=== PATIENT | female | born 1955 | race Caucasian/White ===

== ENCOUNTER → 2021-06-19 08:21 | Outpatient (CLI) | payer OTHER, SELFPAY ==
[2021-06-19 19:15] LABS: Add Manual Diff / Slide Review NO; Basophils Absolute Auto 0 /uL (0-100); Basophils Percent Auto 1.2 % (0-2); Eosinophils Absolute Auto 100 /uL (0-450); Eosinophils Percent Auto 2.9 % (2-4); Hematocrit 43.7 % (36-46); Lymphocytes Absolute Auto 1600 /uL (1100-4500); Lymphocytes Percent Auto 46.3 % (25-40); Mean Corpuscular HGB Conc 34.3 % (30-36); Mean Corpuscular Volume 87.5 fL (80-100); Monocytes Absolute Auto 300 /uL (0-900); Monocytes Percent Auto 9.2 % (3-14); Neutrophils Absolute Auto 1400 /uL (1500-7000); Neutrophils Percent Auto 40.4 % (50-75); Platelet Count 287 X10^3/uL (150-400); White Blood Cell Count 3.4 X10^3/uL (4.5-11.0)
[2021-06-19 19:20] LABS: Alanine Aminotransferase 18 IU/L (<35); Albumin 3.8 g/dL (3.5-5.0); Albumin Globulin Ratio 1.4 (1.0-2.8); Alkaline Phosphatase 69 U/L (38-126); Aspartate Aminotransferase 32 IU/L (14-36); BUN Creatinine Ratio 17.1 (6-22); Bilirubin Total 1.5 mg/dL (0.2-1.3); Blood Urea Nitrogen 13 mg/dL (7-17); Calcium 8.9 mg/dL (8.4-10.2); Carbon Dioxide 25 mmol/L (22-32); Chloride 106 mmol/L (98-107); Cholesterol 176 mg/dL (140-199); Estimated Glomerular Filt Rate > 60.0 mL/min (>60); Globulin 2.7 g/dL (1.7-4.1); Glucose 95 mg/dL (80-110); HDL Cholesterol 73 mg/dL (40-60); HEMOLYSIS < 15 (0-50); LDL Cholesterol Calculated 95 mg/dL (<100); Potassium 3.4 mmol/L (3.4-5.1); Sodium 137 mmol/L (137-145); Total Protein 6.5 g/dL (6.3-8.2); Triglycerides 41 mg/dL (35-150)
[2021-06-19 19:40] LABS: Free T3, Triiodothyronine Free 3.73 pg/mL (2.77-5.27); Free T4, Direct Thyroxine 1.75 ng/dL (0.78-2.19)
[2021-06-19 19:53] LABS: Ferritin 13 ng/mL (11-264)
[2021-06-19 19:59] LABS: Thyroid Stimulating Hormone < 0.015 uIU/mL (0.47-4.68)
[2021-06-21 05:29] LABS: Thyroid Peroxidase Antibodies 156 IU/mL (0-34)
== END ==
PROVIDERS: PCP Family Medicine; Visit Provider Naturopath
DX: D70.9 Neutropenia, unspecified (principal); E06.3 Autoimmune thyroiditis; G43.719 Chronic migraine without aura, intractable, without status migrainosus; Z00.00 Encounter for general adult medical examination without abnormal findings
CPT/HCPCS: 80053; 80061; 82728; 84439; 84443; 84481; 85025; 86376

== ENCOUNTER → 2021-11-13 09:27 | Outpatient (CLI) | payer MEDICARE, OTHER, SELFPAY ==
[2021-11-14 18:21] LABS: Add Manual Diff / Slide Review NO; Basophils Absolute Auto 0 /uL (0-100); Basophils Percent Auto 0.5 % (0-2); Eosinophils Absolute Auto 100 /uL (0-450); Eosinophils Percent Auto 3.1 % (2-4); Hematocrit 45.8 % (36-46); Hemoglobin 15.9 g/dL (12.0-16.0); Lymphocytes Absolute Auto 1600 /uL (1100-4500); Lymphocytes Percent Auto 44.8 % (25-40); Mean Corpuscular HGB Conc 34.7 % (30-36); Mean Corpuscular Volume 89.4 fL (80-100); Monocytes Absolute Auto 300 /uL (0-900); Neutrophils Absolute Auto 1600 /uL (1500-7000); Neutrophils Percent Auto 44.6 % (50-75); Platelet Count 289 X10^3/uL (150-400); Red Blood Cell Count 5.12 X10^6/uL (4.0-5.2); Red Cell Distribution Width 13.4 % (11.6-14.8); White Blood Cell Count 3.6 X10^3/uL (4.5-11.0)
[2021-11-14 18:46] LABS: C-Reactive Protein Quant < 0.5 mg/dL (<1.0)
[2021-11-14 18:54] LABS: Vitamin D 25 Hydroxy (D3) 40.3 ng/mL (30.0-100.0)
[2021-11-14 19:04] LABS: Free T3, Triiodothyronine Free 4.15 pg/mL (2.77-5.27); Free T4, Direct Thyroxine 1.64 ng/dL (0.78-2.19)
[2021-11-14 19:21] LABS: Thyroid Stimulating Hormone < 0.015 uIU/mL (0.47-4.68)
[2021-11-14 19:44] LABS: Vitamin B12 735 pg/mL (239-931)
[2021-11-20 22:24] LABS: ANA Screen, IFA Positive (.)
== END ==
PROVIDERS: PCP Family Medicine; Visit Provider Family Medicine
DX: E03.9 Hypothyroidism, unspecified (principal); G43.709 Chronic migraine without aura, not intractable, without status migrainosus; E55.9 Vitamin D deficiency, unspecified; E06.3 Autoimmune thyroiditis; N95.2 Postmenopausal atrophic vaginitis; R53.83 Other fatigue
CPT/HCPCS: 82306; 82607; 84439; 84443; 84481; 85025; 85651; 86038; 86140

== ENCOUNTER → 2021-11-27 13:30 | Outpatient (CLI) | payer MEDICARE, OTHER, SELFPAY ==
[2021-11-29 16:36] LABS: SS A Ro Sjogrens Antibody < 0.2 AI (0.0-0.9); SS B La Sjogrens Antibody < 0.2 AI (0.0-0.9)
[2021-11-29 17:31] LABS: Scleroderma 70 Antibody < 0.2 AI (0.0-0.9)
== END ==
PROVIDERS: PCP Family Medicine; Visit Provider Family Medicine
DX: E03.9 Hypothyroidism, unspecified; E06.3 Autoimmune thyroiditis; M25.50 Pain in unspecified joint; N95.2 Postmenopausal atrophic vaginitis; R53.82 Chronic fatigue, unspecified; R53.83 Other fatigue
CPT/HCPCS: 86235

== ENCOUNTER → 2022-02-18 15:27 | Outpatient (CLI) | payer MEDICARE, OTHER, SELFPAY ==
[2022-02-21 06:14] LABS: Candida species Negative (Negative); Gardnerella vaginalis Positive (Negative); Trichomoas vaginalis Negative (Negative)
[2022-02-24 00:07] LABS: Chlamydia trachomatis Negative (Negative); Mycoplasma genitalium Negative (Negative); Neisseria gonorrhoeae Negative (Negative)
== END ==
PROVIDERS: PCP Family Medicine; Visit Provider Physician Assistant
DX: N89.8 Other specified noninflammatory disorders of vagina (principal)
CPT/HCPCS: 87480; 87491; 87510; 87563; 87591; 87660

== ENCOUNTER → 2022-02-25 14:29 | Outpatient (CLI) | payer MEDICARE, OTHER, SELFPAY | PROVIDERS: PCP Family Medicine; Visit Provider Physician Assistant | DX: R30.0 Dysuria (principal) | CPT/HCPCS: 87086 ==

== ENCOUNTER → 2022-03-25 11:17 | Outpatient (CLI) | payer MEDICARE, OTHER, SELFPAY | PROVIDERS: PCP Family Medicine; Visit Provider Physician Assistant | DX: B96.89 Other specified bacterial agents as the cause of diseases classified elsewhere (principal); N76.0 Acute vaginitis; N89.8 Other specified noninflammatory disorders of vagina | CPT/HCPCS: 87491; 87591; 87661; 87798; 87801 ==

== ENCOUNTER → 2022-04-02 09:49 | Outpatient (CLI) | payer MEDICARE, OTHER, SELFPAY ==
[2022-04-02 11:34] LABS: Add Manual Diff / Slide Review NO; Basophils Absolute Auto 0 /uL (0-100); Eosinophils Absolute Auto 100 /uL (0-450); Eosinophils Percent Auto 1.9 % (2-4); Hematocrit 46.7 % (36-46); Hemoglobin 15.7 g/dL (12.0-16.0); Lymphocytes Absolute Auto 1900 /uL (1100-4500); Lymphocytes Percent Auto 51.3 % (25-40); Mean Corpuscular HGB Conc 33.5 % (30-36); Mean Corpuscular Hemoglobin 30.6 PG (26-34); Mean Corpuscular Volume 91.1 fL (80-100); Monocytes Absolute Auto 200 /uL (0-900); Monocytes Percent Auto 6.8 % (3-14); Neutrophils Absolute Auto 1400 /uL (1500-7000); Platelet Count 285 X10^3/uL (150-400); Red Blood Cell Count 5.13 X10^6/uL (4.0-5.2); Red Cell Distribution Width 13.7 % (11.6-14.8); White Blood Cell Count 3.6 X10^3/uL (4.5-11.0)
[2022-04-02 12:35] LABS: Alanine Aminotransferase 31 IU/L (<35); Albumin 3.8 g/dL (3.5-5.0); Albumin Globulin Ratio 1.3 (1.0-2.8); Alkaline Phosphatase 62 U/L (38-126); Aspartate Aminotransferase 38 IU/L (14-36); BUN Creatinine Ratio 10.4 (6-22); Bilirubin Total 1.2 mg/dL (0.2-1.3); Blood Urea Nitrogen 8 mg/dL (7-17); Calcium 8.3 mg/dL (8.4-10.2); Carbon Dioxide 26 mmol/L (22-32); Chloride 104 mmol/L (98-107); Estimated Glomerular Filt Rate > 60 mL/min (>60); Globulin 2.9 g/dL (1.7-4.1); Glucose 93 mg/dL (80-110); HEMOLYSIS < 15 (0-50); Potassium 3.6 mmol/L (3.4-5.1); Sodium 139 mmol/L (137-145); Total Protein 6.7 g/dL (6.3-8.2)
[2022-04-02 12:42] LABS: Free T4, Direct Thyroxine 1.12 ng/dL (0.78-2.19)
[2022-04-02 12:56] LABS: Thyroid Stimulating Hormone 0.033 uIU/mL (0.47-4.68)
== END ==
PROVIDERS: PCP Family Medicine; Referring Provider Physician Assistant; Visit Provider Physician Assistant
DX: L71.9 Rosacea, unspecified (principal); F41.9 Anxiety disorder, unspecified; E03.9 Hypothyroidism, unspecified; N89.8 Other specified noninflammatory disorders of vagina
CPT/HCPCS: 36415; 80053; 84439; 84443; 85025

== ENCOUNTER → 2022-04-30 08:57 | Outpatient (CLI) | payer MEDICARE, OTHER, SELFPAY ==
--- NOTE | 2022-04-30 10:11 | DI.US.S_ITS ---
PROCEDURE: US THYROID INDICATIONS: VERY LOW TSH RULE OUT ACTIVE NODULE TECHNIQUE: Real-time scanning was performed of the thyroid gland, with image documentation. COMPARISON: None. FINDINGS: Right: Thyroid lobe measures 3.2 x 1.3 x 1.4 cm, and is homogeneous in echotexture. Left: Thyroid lobe measures 2.9 x 1.2 x 1.1 cm, and is homogenous in echotexture. Isthmus: 2 mm thick. Nodule number: 1 Location: Left upper lateral Size: 0.7 x 0.6 x 0.7 cm. Composition: Solid Echogenicity: Hypoechoic Shape: wider than tall. Margins: Smooth Echogenic foci: None Total points: 4 ACR TI-RADS category: 4 Nodule number: 2 Location: Left inferior Size: 0.8 x 0.4 x 0.5 cm. Composition: Solid Echogenicity: Hypoechoic Shape: wider than tall. Margins: Smooth Echogenic foci: None Total points: 4 ACR TI-RADS category: 4 IMPRESSION: Lesions 1 in 2 are considered category 4. Secondary to small size, no further follow-up is recommended as below. It is noted lesion 2 is markedly inferior into the thyroid bed. While this could represent exophytic nodule, parathyroid cannot be definitively excluded. If clinical symptoms warrant, further evaluation for presence of parathyroid is recommended with nuclear medicine scan. ACR TI-RADS definitions and recommendations: TI-RADS 1 (benign): 0 points. FNA not needed. TI-RADS 2 (not suspicious): 2 points. FNA not needed. TI-RADS 3 (mildly suspicious): 3 points. * FNA if 2.5 cm or larger, follow up if 1.5 cm or larger (at 1, 3, and 5 years). TI-RADS 4 (moderately suspicious): 4-6 points. * FNA if 1.5 cm or larger, follow up if 1 cm or larger (at 1, 2, 3, and 5 years). TI-RADS 5 (highly suspicious): 7 points or more. * FNA if 1 cm or larger, follow up if 0.5 cm or larger (every year for 5 years). Dictated by: Yee Rodriguez M.D. on 04/30/2022 at 16:18 Approved by: Yee Rodriguez M.D. on 04/30/2022 at 16:20
[2022-04-30 19:35] LABS: Cortisol AM (Before 10AM) 9.67 ug/dL (4.46-22.7)
[2022-05-12 08:10] LABS: Percent Free Testosterone 2.67 % (0.50-2.80); Testosterone Free 0.34 ng/dL (0.10-0.85); Testosterone Total 12.9 ng/dL (7.0-40.0)
== END ==
PROVIDERS: PCP Family Medicine; Referring Provider Family Medicine; Visit Provider Family Medicine
DX: E05.90 Thyrotoxicosis, unspecified without thyrotoxic crisis or storm (principal); E04.2 Nontoxic multinodular goiter; M79.10 Myalgia, unspecified site; R53.82 Chronic fatigue, unspecified; N95.2 Postmenopausal atrophic vaginitis; Z51.81 Encounter for therapeutic drug level monitoring; Z79.890 Hormone replacement therapy
CPT/HCPCS: 36415; 76536; 82533; 84402; 84403

== ENCOUNTER → 2022-06-24 14:41 | Outpatient (CLI) | payer MEDICARE, OTHER, SELFPAY ==
[2022-06-24 20:36] LABS: C-Reactive Protein Quant 0.5 mg/dL (<1.0)
[2022-06-24 21:11] LABS: Erythrocyte Sedimentation Rate 2 MM/HR (0-20)
[2022-06-30 20:13] LABS: ANA Screen, IFA Positive (.)
== END ==
PROVIDERS: PCP Family Medicine; Visit Provider Family Medicine
DX: E06.3 Autoimmune thyroiditis (principal); I73.00 Raynaud's syndrome without gangrene; M79.10 Myalgia, unspecified site; R53.82 Chronic fatigue, unspecified; M35.3 Polymyalgia rheumatica
CPT/HCPCS: 85651; 86038; 86140

== ENCOUNTER 2022-07-14 11:07 | Day surgery (SDC) | payer MEDICARE, OTHER, SELFPAY ==
[2022-07-02 12:11] VITALS: BMI 21.2
--- NOTE | 2022-07-14 | PATH_ITS ---
[facility] Accession Number: [id number] No. of containers..01 Tissue . 01 Material submitted: . artery - RIGHT TEMPORAL ARTERY BIOPSY . 01 Diagnosis: Right Temporal Artery, Biopsy: Mild intimal fibrosis consistent with arteriosclerosis. Negative for changes diagnostic of temporal/giant cell arteritis. MRV 07/17/2022 1654 Local . 01 Comment: An elastic stain shows focal disruption of the internal elastic lamina. . 01 Electronically signed: . Yamini Acharya MD, Pathologist NPI- [id number] . 01 Gross description: . RIGHT TEMPORAL ARTERY BIOPSY: Received in formalin is 1 fragment of mao soft tissue measuring 0.4 x 0.3 x 0.2 cm. Specimen is submitted in its entirety in 1 cassette. /KENN 07/15/2022 2320 Local . 01 Pathologist provided ICD-10: G90.01 . 01 CPT . 438793, [id number] Specimen Comment: A courtesy copy of this report has been sent to [facility] Performed at: 01 [facility] [address] [place] [address], [place], [place] [id number] MD Dash Bhandari MD Phone: [phone]
[2022-07-14 11:44] VITALS: BMI 21.2
[2022-07-14 12:02] VITALS: BP 149/84; PULSE 67; RESP 20; TEMP 36.4; O2SAT 100
[2022-07-14] MEDS: LACTATED RINGERS 1,000 ML 42 ML IV ×2 (12:12→14:10)
--- NOTE | 2022-07-14 12:58 | P.HP_ITS ---
History of Present Illness History of Present Illness Date Patient Seen: 07/14/22 Time Patient Seen: 12:58 Chief complaint: Temporal Artery Bx Narrative: Ms. Barbour presents today Having been referred by both her reports analysis manager and her primary care physician for a temporal artery biopsy. There was concern for giant cell arteritis. And she has been started on prednisone.per PCP Dr. Saucedo note, on 06/24 myalgias with dramatic response to prednisone very suspicious for PMR. She did not follow up for her lab work, now unfortunately she is on steroids which may obscure rise in sed rate or CRP...other concerning findings include change in her headache pattern and also tenderness with palpation of the carotids. I am concerned enough that I did have her start prednisone 60 mg a day.She reports no changes in her symptoms since that visit. [facility] Medical History (Updated 07/02/22 @ 12:18 by Saira Hendrickson RN) Chicken pox Endometriosis (~1969) Fibroids (~1994) Headache, migraine Irregular menstrual cycle (~1970) Measles Mumps Osteoarthritis Painful menstrual periods (~1970) Rosacea (~2020) Thyroid nodule (~2013) Surgical History (Updated 02/18/22 @ 16:32 by Kim Figueroa PA-C) Anesthesia History of cholecystectomy (~01/2008) History of hysterectomy (~03/2001) History of varicose vein ligation (~07/2011) Family History (Updated 11/26/21 @ 20:37 by Erica Marcus) Father History of heart disease Hypertension Hyperlipidemia Mother History of heart disease Hyperlipidemia Hypertension Stroke Thyroid disease Brother Hyperlipidemia Hypertension Thyroid disease Sister Hyperlipidemia Hypertension Stroke Grandfather Cancer Grandmother Cancer Social History household members: spouse Smoking Status: Never smoker alcohol intake: never Meds Home Medications and Allergies Home Medications Medication Instructions Recorded Confirmed Type liothyronine 5 mcg tablet 5 mcg PO DAILY #90 tabs 04/07/22 07/14/22 Rx topiramate 50 mg tablet 100 mg PO DAILY #180 tabs 04/07/22 07/14/22 Rx levothyroxine 88 mcg tablet 88 mcg PO DAILY #90 tabs 04/08/22 07/14/22 Rx doxycycline monohydrate 50 mg 50 mg PO DAILY 04/29/22 07/14/22 History tablet esterified 1 tab PO DAILY #90 tabs 04/30/22 07/14/22 Rx estrogens-methyltestosterone 1.25 mg-2.5 mg tablet lorazepam 0.5 mg tablet (Ativan) 0.5 mg PO DAILY PRN anxiety #4 tabs 07/01/22 07/14/22 Rx prednisone 10 mg tablet See Rx Instructions PO DAILY #60 07/03/22 07/14/22 Rx tabs rizatriptan 10 mg tablet 10 mg PO ONCE PRN migraines 07/14/22 07/14/22 History Allergies Allergy/AdvReac Type Severity Reaction Status Date / Time carbamazepine Allergy Severe rash Verified 07/14/22 12:14 (previous mention of seizure too??) ketorolac Allergy Severe bleeding Verified 07/14/22 11:32 tetanus toxoid, adsorbed Allergy Intermediate swelling Verified 07/14/22 11:32 Exam Vital Signs (past 8 hours): - 07/14/22 12:02 Temperature 97.6 F Pulse Rate 67 Respiratory Rate 20 Blood Pressure 149/84 H Pulse Oximetry 100 Oxygen Delivery Method Room Air Oxygen Delivery Method Room Air Const General: healthy appearing, No acute distress and anxious Nutritional Appearance: average body habitus and thin Orientation: alert, awake and oriented x3 HENMT Head: normal to inspection and No scalp lesion Eyes General: appearance normal, both eyes and all related structures Resp Effort & Inspection: normal respiratory effort and able to speak in complete sentences Cardio Rate: regular rate Pulses: radial pulses present Assessment & Plan Assessment and plan (1) Headache, chronic migraine without aura: Qualifiers: Status migrainosus presence: without status migrainosus Intractability: not intractable Qualified Code(s): G43.709 - Chronic migraine without aura, not intractable, without status migrainosus Status: Acute (2) PMR (polymyalgia rheumatica): Status: Acute (3) Carotidynia: Status: Acute Assessment & Plan narrative: I discussed with Ms. Mena the risks benefits and alternatives of a temporal artery biopsy including but not limited to bleeding infection and failure of a diagnosis. I explained large hematomas and nondiagnostic procedures where it is difficult to find the artery or if the artery is found the pathologist is unable to determine the etiology of the disease. She understands these risks and also the benefit of obtaining a diagnosis and would like to proceed with the biopsy.
[2022-07-14] MEDS: CEFAZOLIN 2 GM/100 ML PREMIX 100 ML IV (13:10)
[2022-07-14] MEDS: BUPIVACAINE 0.5% (PF) 10 ML VIAL INJ (13:53)
--- NOTE | 2022-07-14 13:55 | SUR.OPER ---
Supine on padded OR bed, head on pillow, arms padded and tucked at sides, legs uncrossed, safety belt at thigh, tape over blanket over lower legs . Gel pad under bilateral heels. Patient glasses and cell phone placed in patient belongings bag in pre-op area.
[2022-07-14 14:20] VITALS: BP 126/77; PULSE 68; RESP 12; TEMP 36.4; O2SAT 97
[2022-07-14 14:25] VITALS: BP 126/75; PULSE 68; RESP 13; TEMP 36.4; O2SAT 97
[2022-07-14 14:30] VITALS: BP 133/82; PULSE 67; RESP 13; TEMP 36.4; O2SAT 100
--- NOTE | 2022-07-14 14:31 | P.OP_ITS ---
Operative Date/Time/Diagnoses Date of procedure: 07/14/22 Time of procedure: 14:31 Pre-op diagnosis: Suspicion of temporal arteritis Post-op diagnosis: same Procedure & Clinicians Procedure: Temporal artery biopsy right side Same procedure as scheduled: Yes Indications: Referral from abrasive band winder as well as primary care physician for suspected giant cell arteritis. Surgeon: Payton Hummel Anesthesia Type: General Operative Notes Procedure in detail: Patient was taken to the operating room and placed supine. General LMA anesthesia was induced. Time-out was performed. The both right and left temporal arteries were palpated and the right side was more easily palpable. Had discussed previously with the patient that she had no preference as to which side we approached for biopsy. I confirmed that Doppler signal was easily found overlying the palpable area and then the area was prepped Betadine and draped in the usual sterile fashion. Lidocaine without epinephrine was infused around the area after confirming the location with a sterile Doppler and marking the location of the vessel. A 15 blade scalpel was used to make an incision along the hairline and using fine Metzenbaum the incision was carried down into the subcutaneous tissues with careful dissection to identify the vascular bundle below. This small vessel was found and isolated dissected using a fine right angle and a vessel loop was placed around it. Using the vessel loop I dissected free distal and proximal segment of the vessel. I tied off each end with a 3-0 silk suture. Additionally there was a vein nearby which I placed another 3-0 6 silk suture around for the purpose of hemostasis. I then used Metzenbaum to resect the segment of vessel between the 2 silk sutures and sent this for pathology. It was approximately 1 cm in length. Additional hemostasis was achieved using a fine tip electrocautery and the subcutaneous sutures were closed with a single interrupted 3-0 Vicryl. The skin was closed with interrupted 4-0 Monocryl and skin glue. Patient tolerated the procedure well and went in good condition to the postoperative care unit there were no complications
[2022-07-14 14:37] VITALS: BP 139/89; PULSE 71; RESP 15; TEMP 36.4; O2SAT 98
== END 2022-07-14 15:15 | disposition home or self-care (01) ==
PROVIDERS: PCP Family Medicine; Referring Provider Surgery; Visit Provider Surgery
PROC: (CPT 37609; principal; 2022-07-14 12:30)
DX: G43.709 Chronic migraine without aura, not intractable, without status migrainosus (principal); G90.01 Carotid sinus syncope; M35.3 Polymyalgia rheumatica
CPT/HCPCS: 37609; J0690; J1100; J2250; J2405; J2704; J3010

== ENCOUNTER → 2022-11-16 11:18 | Outpatient (CLI) | payer MEDICARE, OTHER, SELFPAY ==
[2022-11-16 20:43] LABS: TSH w/ Reflex to FT4 0.05 uIU/mL (0.47-4.68)
[2022-11-16 22:45] LABS: Free T4, Direct Thyroxine 1.11 ng/dL (0.78-2.19)
== END ==
PROVIDERS: PCP Family Medicine; Visit Provider Family Medicine
DX: E03.9 Hypothyroidism, unspecified (principal)
CPT/HCPCS: 84439; 84443

== ENCOUNTER → 2023-01-21 12:01 | Outpatient (CLI) | payer MEDICARE, OTHER, SELFPAY ==
--- NOTE | 2023-01-21 | DI.MG.S_ITS ---
BILATERAL DIGITAL SCREENING MAMMOGRAM 3D/2D WITH CAD: 01/21/2023 CLINICAL: Default Baseline exam. Routine screening. No prior exams were available for comparison. Both breasts are heterogeneously dense, which may obscure small masses (category c / 51-75% glandular tissue). Current study was also evaluated with a Computer Aided Detection (CAD) system. No significant masses, calcifications, or other findings are seen in either breast. IMPRESSION: NEGATIVE There is no mammographic evidence of malignancy. A 1 year screening mammogram is recommended. Based on the Tyrer Cuzick model (a risk assessment model) the patient's lifetime risk is 8.8% and her 10 year risk is 4.4%. According to the ACR, ACS, and NCCN guidelines, an annual breast MRI exam along with mammogram is recommended if the patient's lifetime risk is 20% or greater. This exam was interpreted at Station ID: [id number]. NOTE: For mammograms, a report in lay terms will be sent to the patient. Approximately 15% of breast malignancies will not be visualized mammographically. In the management of a palpable breast mass, a negative mammogram must not discourage biopsy of a clinically suspicious lesion. Electronically Signed By: Stan cedeño/bahman:01/21/2023 16:52:03 letter sent: Normal Exam ACR BI-RADS Category 1: Negative 3341F
--- NOTE | 2023-01-21 12:03 | DI.RAD.S_ITS ---
Bone Density Report Name: DARNELL DE LEON Age: 67 Sex: Female Ethnicity: White Date of : 1955 Indication: postmenopausal; screening for osteoporosis; Referring Provider: CRISTINA WILLARD Study: Bone densitometry was performed. Exam Date: January 21, 2023 Accession number: [id number] Bone Density: Region BMD T-score Z-score Classification AP Spine(L1, L2) 0.953 -0.2 1.5 Normal Femoral Neck (Left) 0.775 -0.7 0.9 Normal Total Hip (Left) 0.865 -0.6 0.7 Normal Femoral Neck (Right) 0.753 -0.9 0.7 Normal Total Hip (Right) 0.873 -0.6 0.7 Normal Total Hip Mean 0.869 -0.6 0.7 Normal World Health Organization criteria for BMD impression classify patients as: Normal (T-score at or above -1.0), Osteopenia (T-score between -1.0 and -2.5), or Osteoporosis (T-score at or below -2.5). 10-year Fracture Risk: FRAX not reported because: All T-scores for Spine Total, Hip Total, Femoral Neck at or above -1.0 Impression: The patient has normal bone mass. Discussion: BONE DENSITY IS ABOVE THE MINIMUM DESIRABLE LEVEL AT ALL SKELETAL SITES TESTED. This patient's bone mineral density is above the minimum desirable level (T-score -1.0 or better) at all sites measured. The patient should follow a healthful lifestyle (good nutrition with adequate calcium and vitamin D, and appropriate weight-bearing exercise). Follow-Up: Consider repeating this study in 5 years or sooner if there is some new clinical indication. Reported by: DAMI SANDRA M.D. on 01/21/2023 12:26:00 PM.
== END ==
PROVIDERS: PCP Family Medicine; Referring Provider Family Medicine; Visit Provider Family Medicine
DX: Z78.0 Asymptomatic menopausal state (principal); Z12.31 Encounter for screening mammogram for malignant neoplasm of breast; Z13.820 Encounter for screening for osteoporosis
CPT/HCPCS: 77063; 77067; 77080

== ENCOUNTER → 2023-04-26 10:00 | Outpatient (CLI) | payer MEDICARE, OTHER, SELFPAY ==
[2023-04-26 21:56] LABS: TSH w/ Reflex to FT4 0.91 uIU/mL (0.47-4.68)
== END ==
PROVIDERS: PCP Family Medicine; Visit Provider Family Medicine
DX: E03.9 Hypothyroidism, unspecified (principal)
CPT/HCPCS: 84443

== ENCOUNTER → 2023-06-22 09:04 | Outpatient (CLI) | payer MEDICARE, OTHER, SELFPAY ==
[2023-06-22 19:57] LABS: Add Manual Diff / Slide Review NO; Basophils Absolute Auto 100 /uL (0-100); Basophils Percent Auto 1.1 % (0-2); Eosinophils Absolute Auto 200 /uL (0-450); Eosinophils Percent Auto 3.7 % (2-4); Hematocrit 45.2 % (36-46); Hemoglobin 15.8 g/dL (12.0-16.0); Lymphocytes Absolute Auto 2900 /uL (1100-4500); Lymphocytes Percent Auto 57.8 % (25-40); Mean Corpuscular HGB Conc 34.8 % (30-36); Mean Corpuscular Hemoglobin 31.3 PG (26-34); Monocytes Absolute Auto 400 /uL (0-900); Monocytes Percent Auto 8.3 % (3-14); Neutrophils Absolute Auto 1500 /uL (1500-7000); Neutrophils Percent Auto 29.1 % (50-75); Platelet Count 371 X10^3/uL (150-400); Red Blood Cell Count 5.03 X10^6/uL (4.0-5.2); Red Cell Distribution Width 13.3 % (11.6-14.8)
[2023-06-22 19:59] LABS: BUN Creatinine Ratio 11.4 (6-22); Blood Urea Nitrogen 9 mg/dL (7-17); Calcium 8.6 mg/dL (8.4-10.2); Carbon Dioxide 26 mmol/L (22-32); Chloride 105 mmol/L (98-107); Cholesterol 196 mg/dL (140-199); Estimated Glomerular Filt Rate > 60 mL/min (>60); Glucose 91 mg/dL (80-110); HDL Cholesterol 71 mg/dL (40-60); HEMOLYSIS < 15 (0-50); LDL Cholesterol Calculated 113 mg/dL (<100); Potassium 3.5 mmol/L (3.4-5.1); Sodium 136 mmol/L (137-145); Triglycerides 62 mg/dL (35-150)
[2023-06-22 20:20] LABS: TSH w/ Reflex to FT4 1.99 uIU/mL (0.47-4.68)
[2023-06-22 21:03] LABS: Erythrocyte Sedimentation Rate 4 MM/HR (0-20)
== END ==
PROVIDERS: PCP Family Medicine; Visit Provider Family Medicine
DX: M35.3 Polymyalgia rheumatica (principal); E03.9 Hypothyroidism, unspecified; M85.80 Other specified disorders of bone density and structure, unspecified site; I73.00 Raynaud's syndrome without gangrene; Z79.890 Hormone replacement therapy
CPT/HCPCS: 80048; 80061; 84443; 85025; 85651

== ENCOUNTER → 2024-05-03 09:01 | Outpatient (CLI) | payer MEDICARE, OTHER, SELFPAY ==
[2024-05-03 18:31] LABS: Add Manual Diff / Slide Review NO; Basophils Absolute Auto 0 /uL (0-100); Eosinophils Absolute Auto 100 /uL (0-450); Hematocrit 47.9 % (36-46); Hemoglobin 16.3 g/dL (12.0-16.0); Lymphocytes Absolute Auto 2600 /uL (1100-4500); Lymphocytes Percent Auto 60.5 % (25-40); Mean Corpuscular Hemoglobin 30.7 PG (26-34); Mean Corpuscular Volume 90.4 fL (80-100); Monocytes Absolute Auto 300 /uL (0-900); Monocytes Percent Auto 7.2 % (3-14); Neutrophils Absolute Auto 1300 /uL (1500-7000); Neutrophils Percent Auto 29.3 % (50-75); Platelet Count 328 X10^3/uL (150-400); Red Cell Distribution Width 13.5 % (11.6-14.8); White Blood Cell Count 4.3 X10^3/uL (4.5-11.0)
[2024-05-03 18:37] LABS: Blood Urea Nitrogen 8 mg/dL (7-17); Calcium 8.7 mg/dL (8.4-10.2); Carbon Dioxide 25 mmol/L (22-32); Chloride 102 mmol/L (98-107); Cholesterol 206 mg/dL (140-199); Estimated Glomerular Filt Rate > 60 mL/min (>60); Glucose 86 mg/dL (80-110); HDL Cholesterol 94 mg/dL (40-60); HEMOLYSIS 16 (0-50); LDL Cholesterol Calculated 103 mg/dL (<100); Potassium 3.6 mmol/L (3.4-5.1); Sodium 134 mmol/L (137-145); Triglycerides 46 mg/dL (35-150)
[2024-05-03 19:09] LABS: TSH w/ Reflex to FT4 1.25 uIU/mL (0.47-4.68)
[2024-05-03 19:27] LABS: Erythrocyte Sedimentation Rate 1 MM/HR (0-20)
== END ==
PROVIDERS: PCP Family Medicine; Referring Provider Family Medicine; Visit Provider Family Medicine
DX: E03.9 Hypothyroidism, unspecified (principal); Z79.52 Long term (current) use of systemic steroids; M35.3 Polymyalgia rheumatica; G90.01 Carotid sinus syncope; E78.2 Mixed hyperlipidemia
CPT/HCPCS: 80048; 80061; 84443; 85025; 85651

== ENCOUNTER → 2024-06-29 10:53 | Outpatient (CLI) | payer MEDICARE, OTHER, SELFPAY ==
[2024-06-29 19:25] LABS: Add Manual Diff / Slide Review NO; Basophils Absolute Auto 0 /uL (0-100); Basophils Percent Auto 1.4 % (0-2); Eosinophils Absolute Auto 0 /uL (0-450); Eosinophils Percent Auto 0.6 % (2-4); Hematocrit 49.1 % (36-46); Hemoglobin 16.8 g/dL (12.0-16.0); Lymphocytes Absolute Auto 1100 /uL (1100-4500); Lymphocytes Percent Auto 34.5 % (25-40); Mean Corpuscular HGB Conc 34.1 % (30-36); Mean Corpuscular Hemoglobin 30.9 PG (26-34); Mean Corpuscular Volume 90.5 fL (80-100); Monocytes Absolute Auto 200 /uL (0-900); Monocytes Percent Auto 5.1 % (3-14); Neutrophils Absolute Auto 1900 /uL (1500-7000); Neutrophils Percent Auto 58.4 % (50-75); Platelet Count 330 X10^3/uL (150-400); Red Blood Cell Count 5.42 X10^6/uL (4.0-5.2); Red Cell Distribution Width 13.7 % (11.6-14.8); White Blood Cell Count 3.3 X10^3/uL (4.5-11.0)
[2024-06-29 19:32] LABS: BUN Creatinine Ratio 11.4 (6-22); Blood Urea Nitrogen 10 mg/dL (7-17); Calcium 9.6 mg/dL (8.4-10.2); Carbon Dioxide 26 mmol/L (22-32); Chloride 103 mmol/L (98-107); Estimated Glomerular Filt Rate > 60 mL/min (>60); Glucose 106 mg/dL (80-110); HEMOLYSIS < 15 (0-50); Potassium 4.1 mmol/L (3.4-5.1); Sodium 137 mmol/L (137-145)
[2024-06-29 20:23] LABS: Vitamin B12 467 pg/mL (239-931)
== END ==
PROVIDERS: PCP Family Medicine; Visit Provider Family Medicine
DX: E87.1 Hypo-osmolality and hyponatremia (principal); G60.8 Other hereditary and idiopathic neuropathies; D75.1 Secondary polycythemia
CPT/HCPCS: 80048; 82607; 84155; 84165; 85025; 86038

== ENCOUNTER 2024-10-25 06:59 | Day surgery (SDC) | payer MEDICARE, OTHER, SELFPAY ==
--- NOTE | 2024-10-25 | PATH_ITS ---
[facility] Accession Number: [id number] No. of containers..01 Tissue . 01 Material submitted: . colon - CECUM POLYP . 01 Diagnosis: CECUM POLYP: Tubular adenoma. [facility] 11/02/2024 1152 Local . 01 Electronically signed: . Dash Bhandari MD, Pathologist NPI- [id number] . 01 Gross description: . Received in formalin with two identifiers and cecum polyp, are two mao soft tissue fragments measuring 0.2 to 0.2 cm in greatest dimension, entirely submitted in A1. ([id number]) /MRV 11/02/2024 1152 Local . 01 Pathologist provided ICD-10: D12.0 . 01 CPT . 441539 Specimen Comment: A courtesy copy of this report has been sent to [phone] Performed at: [address] [id number] MD Dash Bhandari MD Phone: [phone]
[2024-10-25 07:44] VITALS: BP 174/94; PULSE 83; RESP 16; TEMP 36.2; O2SAT 100
[2024-10-25] MEDS: LACTATED RINGERS 1,000 ML 42 ML IV (07:53)
--- NOTE | 2024-10-25 08:31 | PM.HP.IH.1 ---
History of Present Illness History of Present Illness Date Patient Seen: 10/25/24 Chief complaint: Screening Colonoscopy Narrative: Family history of colon cancer in several distant relatives and possibly her father. Last colonoscopy over 10 years ago. [facility] Medical History (Updated 09/27/24 @ 10:51 by Morgan Saucedo MD) Headache, migraine Osteoarthritis Mumps Measles Chicken pox Painful menstrual periods (~1970) Irregular menstrual cycle (~1970) Fibroids (~1994) Endometriosis (~1969) Thyroid nodule (~2013) Surgical History (Updated 07/21/22 @ 12:14 by Payton Hummel MD) History of temporal artery biopsy Anesthesia History of varicose vein ligation (~07/2011) History of cholecystectomy (~01/2008) History of hysterectomy (~03/2001) Family History Father History of heart disease Hypertension Hyperlipidemia Mother History of heart disease Hyperlipidemia Hypertension Stroke Thyroid disease Brother Hyperlipidemia Hypertension Thyroid disease Sister Hyperlipidemia Hypertension Stroke Grandfather Cancer Grandmother Cancer Social History household members: spouse Smoking Status: Never smoker alcohol intake: never Meds Home Medications and Allergies Home Medications ?Medication ?Instructions ?Recorded ?Confirmed ?Type latanoprost 0.005 % eye drops 1 drp EYE-BOTH QPM 06/14/24 09/27/24 History liothyronine 5 mcg tablet 5 mcg PO DAILY #90 tabs 07/03/24 10/25/24 Rx levothyroxine 50 mcg capsule 50 mcg PO DAILY #90 caps 08/14/24 10/25/24 Rx esterified 1 tab PO DAILY #90 tabs 08/15/24 10/25/24 Rx estrogens-methyltestosterone 1.25 mg-2.5 mg tablet topiramate 50 mg tablet 100 mg (2 x 50 mg) PO DAILY #180 08/15/24 10/25/24 Rx tabs celecoxib 100 mg capsule 100 mg PO BID 09/27/24 10/25/24 History doxycycline hyclate 100 mg capsule 100 mg PO DAILY 09/27/24 10/25/24 History duloxetine 20 mg capsule,delayed 20 mg PO BID #180 caps 09/27/24 09/27/24 Rx release (Cymbalta) prednisone 5 mg tablet 5 mg PO DAILY #90 tabs 09/28/24 10/25/24 Rx Allergies Allergy/AdvReac Type Severity Reaction Status Date / Time carbamazepine Allergy Severe rash Verified 10/25/24 07:43 (previous mention of seizure too??) ketorolac Allergy Severe bleeding Verified 10/25/24 07:43 tetanus toxoid, adsorbed Allergy Intermediate swelling Verified 10/25/24 07:43 Exam Vital Signs (past 8 hours): - 10/25/24 07:44 Temperature 97.1 F L Pulse Rate 83 Respiratory Rate 16 Blood Pressure 174/94 H Pulse Oximetry 100 Oxygen Delivery Method Room Air Oxygen Delivery Method Room Air Assessment & Plan Assessment & Plan narrative: Need for follow-up colorectal cancer screening with some family history of colon cancer. Risks, benefits, alternatives have been explained. Time-Based Coding :: [TOTAL MINUTES] spent with patient and on the chart (including review of chart, obtaining history, exam, reviewing outside data, placing orders, documenting exam and treatment plan, and counseling patient) on [DATE]. [employer] Document charge(s): No
--- NOTE | 2024-10-25 08:33 | PM.OP.COLON ---
Operative Date/Time/Diagnoses Date of procedure: 10/25/24 Time of procedure: 09:02 Pre-op diagnosis: See indication and findings Post-op diagnosis: same Procedure & Clinicians Study performed: Colonoscopy Same procedure(s) as scheduled: No Indications: Colon cancer screening Surgeon: Gisselle Bajwa Anesthesia Type: Other Procedure Notes Procedure in detail: After informed consent was obtained the patient was placed in left lateral decubitus position. The video colonoscope was introduced the rectum slowly advanced cecum. Preparation was good. On slow withdrawal mucosa was carefully examined. The scope was removed. The patient tolerated the procedure well. Blood loss none Complications none Sedation mac Findings 1. Possible diminutive polyp of the cecum Jumbo biopsy x2 and removed 2. Otherwise negative colonoscopy to cecum Will be in touch with the patient regarding her findings. But with her family history she needs follow-up sooner than every 10 years. Five would be adequate.
[2024-10-25 09:05] VITALS: BP 134/82; PULSE 95; RESP 16; TEMP 36.2; O2SAT 99
[2024-10-25 09:10] VITALS: BP 141/82; PULSE 79; RESP 16; O2SAT 99
[2024-10-25 09:26] VITALS: BP 159/90; PULSE 88; RESP 12; TEMP 36.9; O2SAT 99
== END 2024-10-25 09:33 | disposition home or self-care (01) ==
PROVIDERS: PCP Family Medicine; Referring Provider Internal Medicine Gastroenterology; Visit Provider Internal Medicine Gastroenterology
PROC: 0DJD8ZZ Inspection of Lower Intestinal Tract, Via Natural or Artificial Opening Endoscopic (ICD-10-PCS; CPT 45378; principal; 2024-10-25 08:30)
DX: Z12.11 Encounter for screening for malignant neoplasm of colon (principal); D12.0 Benign neoplasm of cecum
CPT/HCPCS: 45380; J2405; J2704

== ENCOUNTER → 2024-11-06 14:11 | Outpatient (CLI) | payer MEDICARE, OTHER, SELFPAY ==
--- NOTE | 2024-11-06 14:12 | DI.MG.S_ITS ---
MM screening mammo BI: 11/06/2024. BI-RADS: 1 CLINICAL: 68-year old female for bilateral screening mammogram. Tyrer-Cuzick lifetime risk of 4.1%. No personal or first-degree family history of breast cancer. PRIOR EXAMS 01/21/2023. MAMMOGRAPHY TECHNIQUE: 2D and 3D (tomosynthesis) digital mammographic views obtained, with additional images as needed for full coverage. Current study was also evaluated with a Computer Aided Detection (CAD) system. DENSITY C. The breasts are heterogeneously dense, which may obscure small masses. MAMMOGRAPHY FINDINGS Bilateral: No suspicious mass, asymmetry, microcalcification, or other abnormality seen. IMPRESSION: * No evidence of malignancy. RECOMMENDATIONS Bilateral * Annual screening mammography. OVERALL ASSESSMENT CATEGORY BI-RADS-1: Negative. The [employer] recommends annual screening mammography beginning at age 40 for women with average risk of breast cancer. ELECTRONICALLY SIGNED: Patrice Payne M.D. on 11/07/2024 at 09:14:14 AM PT Interpreting Station ID: [id number]
== END ==
LOC: MAMMO 14:12
PROVIDERS: PCP Family Medicine; Referring Provider Family Medicine; Visit Provider Family Medicine
DX: Z12.31 Encounter for screening mammogram for malignant neoplasm of breast (principal); R92.333 Mammographic heterogeneous density, bilateral breasts
CPT/HCPCS: 77063; 77067

== ENCOUNTER → 2025-01-24 10:33 | Outpatient (CLI) | payer MEDICARE, OTHER, SELFPAY ==
--- NOTE | 2025-01-24 10:35 | DI.RAD.S_ITS ---
PROCEDURE: XR DEXA AXIAL SKELETON INDICATIONS: menopause osteopenia COMPARISON: [facility], , XR DEXA AXIAL SKELETON, 01/21/2023, 12:16. FINDINGS: Lumbar Spine: Bone mineral density 0.948 g/cm2, T score -0.3, no significant change. Left Femoral Neck: Bone mineral density 0.773 g/cm2, T score -0.7. Left Hip: Bone mineral density 0.861 g/cm2, T score -0.7, no significant change. Fracture Risk Calculation (when applicable): 10-year fracture risk of a major osteoporotic fracture 18 percent and of a hip fracture 1.6 percent. (T score greater or equal to -1.0 to: NORMAL) (T score from -1.1 to -2.4: OSTEOPENIA) (T score less than or equal to -2.5: OSTEOPOROSIS) IMPRESSION: Normal bone mineral density by WHO classification. Follow-up guidelines as follows: Osteoporosis: Consider a repeat DEXA and Vertebral Fracture Assessment (VFA) exam in 2 years or sooner if medically necessary, to reassess this patient's status. Osteopenia: Consider a repeat DEXA in 2-3 years to reassess this patient's status, or if there is a new clinical indication. Normal: Consider a repeat DEXA in 5 years or sooner, or if there is a new clinical indication. All treatment decisions require clinical judgment and consideration of individual patient factors, including patient preferences, comorbidities, previous drug use, risk factors not captured in the FRAX model (e.g., frailty, falls, vitamin D deficiency, increased bone turnover, interval significant decline in bone density ) and possible under- or over-estimation of fracture risk by FRAX. In addition, the NOF Guide recommends that FDA-approved medical therapies be considered in postmenopausal women and men age >= 50 years with a: * Hip or vertebral (clinical or morphometric) fracture * T-score of <=-2.5 at the spine or hip * Ten-year fracture probability by FRAX of >= 3% for hip fracture or >=20% for major osteoporotic fracture. Dictated by: Darrian Garduno M.D. on 01/24/2025 at 20:33 Approved by: Darrian Garduno M.D. on 01/24/2025 at 20:34
== END ==
LOC: RAD 10:34
PROVIDERS: PCP Family Medicine; Referring Provider Family Medicine; Visit Provider Family Medicine
DX: M85.88 Other specified disorders of bone density and structure, other site (principal); Z78.0 Asymptomatic menopausal state
CPT/HCPCS: 77080